=== PATIENT | male | born 2000 | race Caucasian/White ===

== ENCOUNTER 2023-10-09 22:09 | Emergency (ER) | payer OTHER, SELFPAY ==
[2023-10-09 22:10] VITALS: BP 155/98
--- NOTE | 2023-10-09 22:41 | ED.GENMED ---
History of Present Illness
General
Chief Complaint: Facial Problem
Source: patient
Exam Limitations: none
Time Seen by Provider: 10/09/23 22:28
Nursing documentation reviewed up to this point in time: agreed with
Travel History
Have you had any contact with someone who has COVID-19?: No
Do you have any symptoms of coronavirus? Fever > 100 degrees, chills, cough, shortness of breath, sore throat, loss of taste or smell, muscle aches, or headache?: No
History of Present Illness
History of Present Illness:
23-year-old male with past medical history of sinus issues presenting to the emergency department today with concerns of a few days of worsening facial pressure discomfort after having allergies at his friend's house. Has been taking Excedrin
Benadryl naproxen without relief. He claims this is somewhat positional but is not consistent with laying down or leaning forward. Denies nausea vomiting numbness weakness change in vision.
Past History
Past History
ED Past Medical History: Asthma
ED Past Surgical History: None
Social History
Tobacco: Non-smoker
Alcohol: None
Drug: None
Personal: Single
Living: with family
Review of Systems
Review of Systems
Allergies reviewed?: Yes
All Other Systems: ROS reviewed and negative except as documented in HPI and ROS
Phy Exam
Physical Exam
Physical Exam:
GENERAL: Alert , in no apparent distress
EYE: pupils equal and reactive
NECK: Supple, no significant adenopathy.
ENT: o/p clr, mmm.
CARDIAC: Regular rate and rhythm .
LUNGS: Clear breath sounds bilaterally, no acute respiratory distress, no wheezes/rales/rhonchi
ABDOMEN: Soft, without focal tenderness, no r/g, no cvat
NEUROLOGICAL: Alert and oriented, no focal neuro deficits 5-5 upper and lower extremity strength normal sensation when palpating bilaterally normal finger-nose and spul-pt-cdif no pronator drift
SKIN: Warm and dry, skin intact.
MUSCULOSKELETAL: No edema, well perfused.
PSYCH: Normal and appropriate interaction.
Course
Orders/Labs/Results
Orders:
Orders
10/09/23 22:39
Acetaminophen [Tylenol] 1,000 mg PO NOW STA
Amoxicillin 875 mg/Clav 125 mg [Augmentin 875 mg/125 mg] 1 tablet PO NOW STA
Dexamethasone [Decadron] 10 mg PO NOW STA
Ketorolac [Toradol] 30 mg IM NOW STA
Metoclopramide [Reglan] 10 mg PO NOW STA
10/09/23 23:19
CT Head W/o Iv Contrast Urgent
Comment:
Reason For Exam: right sided VO
Diphenhydramine [Benadryl] 25 mg PO NOW STA
Vital Signs
Initial and Last Documented VS:
Initial Vital Signs
Temp Pulse Resp BP Pulse Ox
98.2 F 66 24 155/98 100
10/09/23 22:10 10/09/23 22:10 10/09/23 22:10 10/09/23 22:10 10/09/23 22:10
Last Documented Vital Signs
Temp Pulse Resp BP Pulse Ox
98.2 F 70 24 133/70 99
10/09/23 22:10 10/10/23 00:36 10/09/23 22:10 10/10/23 00:36 10/10/23 00:36
MDM/Problems Addressed
MDM/Problems Addressed:
22-year-old male presenting to the emergency department today with concerns of facial pressure and sinus headache over the past few days after having allergies. Has been taking medications at home without relief. Vital signs normal here with out
any neurologic symptoms on physical examination. Does have some sinus pressure when palpating. Does have a history of similar symptoms. Symptoms seem to be consistent with a sinus pressure headache. No signs of emergent pathology requiring
emergent in the was given steroids to help with inflammation. Patient claims he had recurrence of symptoms here claims that they were somewhat severe considering the CT scan was performed to ensure no alternate pathology. This was normal. Patient
then had improving symptoms there after. Reassessed with no emergent pathology stable for outpatient management advised for close outpatient follow-up return precautions given.
*Critical Care Note
Total Time (30-74mins, 75-104mins- exclusive of procedures): Not Applicable
ED Attending Note
-
Portions of this chart may have been created with voice recognition software.� Occasional wrong word or��sound alike� substitutions may have occurred due to the inherent limitations of voice recognition software.
Discharge Plan
Departure
Patient Disposition: Home (Routine Discharge)
Date of Disposition: 10/10/23
Time of Disposition: 00:31
Patient with high blood pressure during this ER visit?: No
Condition: Good
Covid-19: Not Applicable
Discharge Problem:
Acute sinusitis
Instructions: Sinusitis, Adult (DC)
Prescriptions:
New
amoxicillin-pot clavulanate 875-125 mg tablet
1 tab PO BID 7 Days Qty: 14 0RF
prednisone 20 mg tablet
40 mg PO DAILY 4 Days Qty: 8 0RF
No Action
sulfacetamide sodium 15 ML drops
1 drp BOTH EYES Q4 Qty: 1 0RF
prednisone 50 MG tablet
50 mg PO DAILY Qty: 6 0RF
Referrals:
Frederick Fraire MD [Active] - Follow up in 5-7 days
UNKNOWN - PT NOT,INTERVIEWE [Family Provider] -
Activity Restrictions/Additional Instructions:
You can to the emergency department today with concerns of facial pressure and discomfort. Please take the prescribed medications and follow closely as an outpatient. Return to the emergency department for any worsening, new or concerning symptoms.
Interventions
Interventions:
*Risk Screen - Suicide Last Done: 10/09/23 22:10
*General Assessment Last Done: 10/10/23 00:03
*Neglect/Abuse Screening Last Done: 10/09/23 22:10
*Nursing Disposition Last Done: 10/10/23 00:36
ED- Neurological Assessment Last Done: 10/10/23 00:03
ED-Psychological Assessment Last Done: 10/10/23 00:03
ED-Skin Assessment Last Done: 10/10/23 00:03
Discharge Date and Time
Discharge Date/Time: 10/10/23 00:37
Print Language: KHMER
[2023-10-09] MEDS: DECADRON 10 MG PO (22:47)
[2023-10-09] MEDS: TYLENOL 1000 MG PO (22:47)
[2023-10-09] MEDS: REGLAN 10 MG PO (22:50)
[2023-10-09] MEDS: AUGMENTIN 875 MG/125 MG 1 TABLET PO (22:51)
[2023-10-09] MEDS: TORADOL 30 MG IM (22:51)
[2023-10-09] MEDS: BENADRYL 25 MG PO (23:24)
[2023-10-10 00:25] VITALS: BP 133/70
[2023-10-10 00:36] VITALS: BP 133/70
== END 2023-10-10 00:37 | disposition home or self-care (01) ==
LOC: EMR 22:09
PROVIDERS: EMERGENCY PHYSICIAN Emergency Medicine
DX: J01.90 Acute sinusitis, unspecified (principal)
CPT/HCPCS: 99284; 96372; 70450